=== PATIENT | male | born 1945 | race Caucasian/White ===

== ENCOUNTER → 2023-11-25 | Outpatient (REF) | payer BC, SELFPAY | LOC: DHSLP | PROVIDERS: ATTENDING PHYSICIAN Internal Medicine Critical Care Medicine; FAMILY PHYSICIAN Family Medicine | DX: G47.33 Obstructive sleep apnea (adult) (pediatric) (principal) | CPT/HCPCS: 95800 ==

== ENCOUNTER 2024-05-30 06:14 | Day surgery (SDC) | payer BC, SELFPAY ==
[2024-05-30] VITALS (14 sets, daily range): BP systolic 83–143; BP diastolic 59–99; BMI 26.5
--- NOTE | 2024-05-30 07:05 | HP.FOC2 ---
Focused History & Physical
Chief Complaint
HPI:
Chief Complaint: Umbilical hernia
HPI / Indication for Planned Procedure: Patient is a 78-year-old male recently seen in outpatient surgical evaluation confirmed the presence of a known umbilical hernia. He has been following expectantly for a few years now and it has increased a
bit in size. Occasional discomfort but it generally remains soft and reducible.
Relevant Past Medical History: Other (History of non-Hodgkin's lymphoma, hypertension, CAD with history of [place], pacemaker, CKD 3 umbilical hernia)
Relevant Social History: Negative
Relevant Family History: Negative
Relevant Past Surgical History: Positive for (Open left inguinal hernia repair, Achilles tendon repair, pacemaker, cardiac stent, lymph node biopsy)
Review of Systems
Review of Pertinent Systems: All Systems Negative
Medication
See Medication form for detailed medications: Yes
Medication List (including Herbals & OTC):
bempedoic acid 180 mg tablet (Nexletol) 180 mg PO DAILY 05/27/24
diltiazem HCl 360 mg capsule,24 hr,extended release (Tiadylt ER) 360 mg PO DAILY 05/27/24
hydrochlorothiazide 25 mg tablet 25 mg PO BID 05/27/24
losartan 50 mg tablet 50 mg PO BID 05/27/24
magnesium 250 mg tablet 250 mg PO DAILY 05/27/24
potassium citrate 99 mg capsule 99 mg PO DAILY 05/27/24
rivaroxaban 20 mg tablet (Xarelto) 20 mg PO HS 05/27/24
vitamin E (dl, acetate) 180 mg (400 unit) capsule 180 mg PO DAILY 05/27/24
Medications Reviewed: Yes
Allergies and Reactions
Patient has Allergies: No
Noted Allergies and Reactions:
Allergy/AdvReac Type Severity Reaction Status Date / Time
No Known Allergies Allergy Verified 05/27/24 09:34
Pertinent Physical Exam
All Other Systems: Negative
Head/Neck: Normal
Lungs: Normal
Heart: Normal
Abdomen: Other (Reducible umbilical hernia, 2 cm)
Extremities: Normal
Neurological: Normal
Diagnosis / Assessment
78-year-old male presenting for scheduled operative correction symptomatic umbilical hernia
Plan / Procedure
Open umbilical hernia repair with mesh
Anesthesia/Sedation to be done by Anesthesia Provider: Yes
--- NOTE | 2024-05-30 07:07 | W.SUR.PREOP ---
Pre-Operative Surgical Note
-
I have examined this patient prior to the performance of the scheduled procedure.
The patient's condition is unchanged from the time of the current History and
Physical and the patient is able to undergo the scheduled procedure.
[2024-05-30] MEDS: TYLENOL 1000 MG PO (07:20)
--- NOTE | 2024-05-30 08:35 | W.IMMPOSTOP ---
Addendum entered and electronically signed by Ferny Gomez MD 05/30/24 08:44:
#[id number]
Original Note:
Surgical Immed Post Op Note
-
Primary Surgeon: Patricia
Assisting Surgeon: Nilam Russell PA-C
Pre-op Diagnosis: Umbilical hernia
Post-op Diagnosis: Umbilical hernia, 2 cm
Procedure Performed: Open umbilical herniorrhaphy with mesh; Ventralex ST 6.4 cm round
Anesthesia Type: MAC +1% lidocaine/0.25% Marcaine
Specimen / Cultures: None
Estimated Blood Loss: 4 mL
Complications: None immediate
Operative Findings: Reducible umbilical hernia, 2 cm fascial defect. Open preperitoneal repair with Ventralex ST 6.4 cm round and closure of the overlying fascial defect.
The assistance of Nilam Russell PA-C was required due to the complexity of the procedure. During the procedure Nilam Russell PA-C assisted with retraction and closure of the wound surgical site.
--- NOTE | 2024-05-30 09:03 | SUR.PHASEI ---
patient with history of post op delirium - received propofol and precedex in OR, sedate - low BP on arrival to pacu - treated by CONDITIONING ROOM WORKER; now continues to sleep, BP stable but remains lower
--- NOTE | 2024-05-30 09:31 | SUR.PHASEI ---
awake, alert and oriented at 0915, comfortable, no c/o - happy with smooth anesthesia. ready for sds
== END 2024-05-30 10:30 | disposition home or self-care (01) ==
LOC: SDS 06:14
PROVIDERS: ATTENDING PHYSICIAN Surgery
DX: K42.9 Umbilical hernia without obstruction or gangrene (principal)
CPT/HCPCS: 49593; C1781

== ENCOUNTER → 2024-11-17 07:52 | Outpatient (REF) | payer BC, SELFPAY | LOC: HWRAD 07:52 | PROVIDERS: ATTENDING PHYSICIAN Internal Medicine Nephrology; FAMILY PHYSICIAN Family Medicine | DX: N18.32 Chronic kidney disease, stage 3b (principal) | CPT/HCPCS: 76770 ==

== ENCOUNTER → 2025-07-13 09:25 | Outpatient (REF) | payer BC, SELFPAY | LOC: RAD 09:25 | PROVIDERS: ATTENDING PHYSICIAN Family Medicine | DX: R05.3 Chronic cough (principal) | CPT/HCPCS: 71046 ==

== ENCOUNTER 2025-07-14 20:34 | Inpatient (IN) | payer BC, SELFPAY ==
[2025-07-14] VITALS (8 sets, daily range): BP systolic 130–167; BP diastolic 67–94; BMI 26.0; BMI 25.2
[2025-07-14 12:49] LABS: Hematocrit 44.1 % (39.0-52.0); Hemoglobin 15.2 g/dL (13.0-18.0); Mean Corp Hgb Conc. 34.5 g/dL (33.0-37.0); Mean Corpuscular Volume 95.5 fL (80.0-94.0); Nucleated Red Blood Cells % 0 % (-); Platelet Count 192 10^3/uL (130-400); Red Cell Dist. Width 13.9 % (11.5-14.5)
[2025-07-14 13:10] LABS: ALT (SGPT) 32 U/L (0-50); AST (SGOT) 29 U/L (17-59); Albumin 4.1 g/dl (3.5-5.0); Alkaline Phosphatase 44 U/L (38-126); Blood Urea Nitrogen 36 mg/dl (9-20); Calcium 9.2 mg/dl (8.4-10.2); Carbon Dioxide 26 mmol/L (22-30); Chloride 103 mmol/L (98-107); Glucose 86 mg/dl (70-99); Potassium 4.2 mmol/L (3.5-5.1); Sodium 136 mmol/L (135-145); Total Protein 7.1 g/dl (6.3-8.2); eGFR > 60.00
[2025-07-14 13:14] LABS: Troponin I 0.015 ng/ml
--- NOTE | 2025-07-14 14:20 | ED.GENMED ---
History of Present Illness
<Vanessa Maldonado, HORIZONTAL DRILL OPERATOR - Last Filed: 07/14/25 19:46>
General
Chief Complaint: Cough
Source: patient and spouse
Exam Limitations: none
Time Seen by Provider: 07/14/25 14:18
Nursing documentation reviewed up to this point in time: agreed with
History of Present Illness
History of Present Illness:
79-year-old male with history of sleep apnea on CPAP, A-fib, on Xarelto, HTN, HLD, pacemaker, CAD, cardiac stent 20 yrs ago, IBS presents for a three-week history of shortness of breath, productive cough with yellow mucus, wheezing, runny nose,
headache, and sore throat. Symptoms started after a severe viral upper respiratory infection around [facility]. The patient�s son had similar symptoms, and the patient was prescribed methylprednisolone and a Zpack for treatment, which initially
improved his condition. However, over the past three days, the patients cough became more productive, and he developed shortness of breath when lying down and with activity. He use home albuterol via a nebulizer, which improved oxygen saturation
from 90% to 96-97%. The patient also reports recent onset swelling in his legs and ankles, which has worsened.
He denies CP, abd pain, n/v/d/c.
Past History
<Vanessa Maldonado, HORIZONTAL DRILL OPERATOR - Last Filed: 07/14/25 19:46>
Past History
ED Past Medical History: Arrthythmia (A-fib on Xarelto), CAD, HTN and Hypercholesterolemia
ED Past Surgical History: Cardiac (Pacemaker) and Orthopedic
Review of Systems
<Vanessa Maldonado, HORIZONTAL DRILL OPERATOR - Last Filed: 07/14/25 19:46>
Review of Systems
Allergies reviewed?: Yes
All Other Systems: ROS reviewed and negative except as documented in HPI and ROS
Phy Exam
<Vanessa Maldonado, HORIZONTAL DRILL OPERATOR - Last Filed: 07/14/25 19:46>
Physical Exam
Physical Exam:
GENERAL: No acute distress. A&Ox3.
CONSTITUTIONAL: Afebrile.
EYES: clear, conjunctivae normal
ENMT: moist mucus membranes, Pharynx nl
RESPIRATORY: Regular respirations, nonlabored, frequent cough, lungs with scattered expiratory wheezes, mild rhonchi
CARDIOVASCULAR: Regular rate and rhythm, no murmurs, no rubs.
GI: Soft, nontender, normal BS
MUSCULOSKELETAL: Moves with ease. Well perfused.
SKIN: Warm, dry, pink
PSYCH: Normal mood and affect. Well kept, interactive and appropriate
NEUROLOGIC: Awake, alert and oriented. No focal neurological deficits
Course
<Vanessa Maldonado HORIZONTAL DRILL OPERATOR - Last Filed: 07/14/25 19:46>
Orders/Labs/Results
Orders:
Orders
07/14/25 12:30
Electrocardiogram (*1) Urgent
Reason for Study: Chest Pain
EKG- Treatment ONCE
07/14/25 12:40
Complete Blood Count/With Diff Urgent
Comprehensive Metabolic Panel Urgent
Pro-BNP [NT-proBNP] Urgent
Troponin I Urgent
07/14/25 15:32
Ipratropium/Albuterol Sulfate [Duoneb] 3 ml INH R NOW STA
07/14/25 15:33
Furosemide [Lasix] 40 mg IV NOW STA
07/14/25 18:13
Dexamethasone Sod Phosphate [Decadron] 6 mg IV NOW STA
07/14/25 18:31
Admit/Transfer Patient As Directed
Co-Sign Provider:
Level of Care: Inpatient admission
Assign to:: Telemetry
Physician / Group: cat
Diagnosis: chf exacerbation
Reason for Telemetry: Pulmonary Edema
Date to Stop Telemetry: 07/17/25
Time to Stop Telemetry: 11:00
Reason for Hospitalization: chf exacerbation
Expected length of stay greater than two midnights?: Yes
ELOS- Estimated Length of Stay in days: 2
I certify the patient meets the requirements for IP care: Yes
PRN Pain Medication Management As Directed
May give lesser potent ordered pain med per pt: Yes
preference::
Protocol:: Medication orders for pain may be administered in a
manner that supports deferring to patient preference
when the pt is:
- Requesting an ordered lesser potent pain medication.
Least to most potent pain medications are defined
as: acetaminophen < NSAID < tramadol < opioids
(morphine, oxycodone, hydromorphone).
- Requesting a lesser dose of the same medication IF
ORDERED.
- Requesting a less intrusive route of administration
if both routes are prescribed by the provider (PO <
IV).
07/14/25 18:32
Code Status As Directed
Resuscitation Status: Full Code
07/14/25 18:44
COVID-19 Antigen Urgent
Source: Nasal Swab
Influenza A+B Rapid Molecular Urgent
[place] Source: Nasal Swab
Specimen Description:
07/17/25 11:00
DC Protocol for Telemetry ONCE
Abnormal Lab Results
07/14/25
12:40
RBC 4.62 L 10^6/uL
(4.70-6.10)
MCV 95.5 H fL
(80.0-94.0)
MCH 32.9 H pg
(27.0-31.0)
MPV 11.1 H fL
(7.4-10.4)
Abs Immat Gran (auto) 0.2 H 10^3/uL
(0-0.05)
Absolute Neuts (auto) 7.4 H 10^3/uL
(1.4-6.5)
Absolute Monos (auto) 0.8 H 10^3/uL
(0.1-0.6)
Immature Gran % 1.8 H %
(0-0.5)
Lymphocytes % 14.2 L %
(20.5-51.1)
BUN 36 H mg/dl
(9-20)
07/14/25 12:40
07/14/25 12:40
Vital Signs
Initial and Last Documented VS:
Initial Vital Signs
Temp Pulse Resp BP Pulse Ox
97.7 F 74 18 167/94 95
07/14/25 12:27 07/14/25 12:27 07/14/25 12:27 07/14/25 12:27 07/14/25 12:27
Last Documented Vital Signs
Temp Pulse Resp BP Pulse Ox
97.7 F 70 22 130/79 96
07/14/25 12:27 07/14/25 19:00 07/14/25 19:00 07/14/25 19:00 07/14/25 18:45
Retort Setter consulted with Physician
Retort Setter consulted with physician?: Yes
Name of Physician Consulted: Raúl
<Cruzito Olsen MD - Last Filed: 07/14/25 18:08>
Orders/Labs/Results
Orders:
Orders
07/14/25 12:30
Electrocardiogram (*1) Urgent
Reason for Study: Chest Pain
EKG- Treatment ONCE
07/14/25 12:40
Complete Blood Count/With Diff Urgent
Comprehensive Metabolic Panel Urgent
Pro-BNP [NT-proBNP] Urgent
Troponin I Urgent
07/14/25 15:32
Ipratropium/Albuterol Sulfate [Duoneb] 3 ml INH R NOW STA
07/14/25 15:33
Furosemide [Lasix] 40 mg IV NOW STA
07/14/25 18:13
Dexamethasone Sod Phosphate [Decadron] 6 mg IV NOW STA
07/14/25 18:31
Admit/Transfer Patient As Directed
Co-Sign Provider:
Level of Care: Inpatient admission
Assign to:: Telemetry
Physician / Group: cat
Diagnosis: chf exacerbation
Reason for Telemetry: Pulmonary Edema
Date to Stop Telemetry: 07/17/25
Time to Stop Telemetry: 11:00
Reason for Hospitalization: chf exacerbation
Expected length of stay greater than two midnights?: Yes
ELOS- Estimated Length of Stay in days: 2
I certify the patient meets the requirements for IP care: Yes
PRN Pain Medication Management As Directed
May give lesser potent ordered pain med per pt: Yes
preference::
Protocol:: Medication orders for pain may be administered in a
manner that supports deferring to patient preference
when the pt is:
- Requesting an ordered lesser potent pain medication.
Least to most potent pain medications are defined
as: acetaminophen < NSAID < tramadol < opioids
(morphine, oxycodone, hydromorphone).
- Requesting a lesser dose of the same medication IF
ORDERED.
- Requesting a less intrusive route of administration
if both routes are prescribed by the provider (PO <
IV).
07/14/25 18:32
Code Status As Directed
Resuscitation Status: Full Code
07/14/25 18:44
COVID-19 Antigen Urgent
Source: Nasal Swab
Influenza A+B Rapid Molecular Urgent
[place] Source: Nasal Swab
Specimen Description:
07/17/25 11:00
DC Protocol for Telemetry ONCE
Abnormal Lab Results
07/14/25
12:40
RBC 4.62 L 10^6/uL
(4.70-6.10)
MCV 95.5 H fL
(80.0-94.0)
MCH 32.9 H pg
(27.0-31.0)
MPV 11.1 H fL
(7.4-10.4)
Abs Immat Gran (auto) 0.2 H 10^3/uL
(0-0.05)
Absolute Neuts (auto) 7.4 H 10^3/uL
(1.4-6.5)
Absolute Monos (auto) 0.8 H 10^3/uL
(0.1-0.6)
Immature Gran % 1.8 H %
(0-0.5)
Lymphocytes % 14.2 L %
(20.5-51.1)
BUN 36 H mg/dl
(9-20)
07/14/25 12:40
07/14/25 12:40
Vital Signs
Initial and Last Documented VS:
Initial Vital Signs
Temp Pulse Resp BP Pulse Ox
97.7 F 74 18 167/94 95
07/14/25 12:27 07/14/25 12:27 07/14/25 12:27 07/14/25 12:27 07/14/25 12:27
Last Documented Vital Signs
Temp Pulse Resp BP Pulse Ox
97.7 F 70 22 130/79 96
07/14/25 12:27 07/14/25 19:00 07/14/25 19:00 07/14/25 19:00 07/14/25 18:45
<Vanessa Maldonado HORIZONTAL DRILL OPERATOR - Last Filed: 07/14/25 19:46>
MDM/Problems Addressed
Differential Diagnosis Includes:
CHF, pneumonia, COPD, viral URI,
MDM/Problems Addressed:
79-year-old male with history of sleep apnea on CPAP, A-fib, on Xarelto, HTN, HLD, pacemaker, CAD, cardiac stent 20 yrs ago, IBS presents for a three-week history of shortness of breath, productive cough with yellow mucus, wheezing, runny nose,
headache, and sore throat. Symptoms started after a severe viral upper respiratory infection around [facility]. The patient�s son had similar symptoms, and the patient was prescribed methylprednisolone and a Zpack for treatment, which initially
improved his condition. However, over the past three days, the patients cough became more productive, and he developed shortness of breath when lying down and with activity. He use home albuterol via a nebulizer, which improved oxygen saturation
from 90% to 96-97%. The patient also reports recent onset swelling in his legs and ankles, which has worsened.
He denies CP, abd pain, n/v/d/c.
NAD, frequent cough, lungs with scattered expiratory wheezes.
EKG: Ventricular paced rhythm heart rate 71
at bedside, an Oncologist reports pt had an echocardiogram in April showing normal EF, mild aortic stenosis, mildly enlarged heart.
Reviewed out pt xray from yesterday:
IMPRESSION:
1. Mild acute interstitial and alveolar cardiogenic pulmonary edema.
2. Mild cardiomegaly.
3. Mildly decreased bilateral lung volumes.
4. Left-sided dual-chamber cardiac pacemaker in place.
CBC with no clinically significant abnormality
CMP: BUN 36 otherwise normal
Troponin 0.015
BNP 1500
Suspect a mixture of upper respiratory infection and CHF.
Discussed case with Dr. Olsen who evaluated pt Pt dipping into high 80's with conversation,. Not much improvement after Duoneb. Recommend admit.
Hospitalist notified of admission.
Covid and Flu pending
COVID and flu negative
<Vanessa Maldonado, HORIZONTAL DRILL OPERATOR - Last Filed: 07/14/25 19:46>
*Pulse Oximetry
SaO2: 95
Oxygen Mode of Delivery: Room air
Patient hypoxic: no
*EKG
EKG Intrepretation Date: 07/14/25
Interpretation: abnormal
Heart Rate: 71
Rate: normal
Rhythm: ventricular paced
[place]: normal axis
QRS Pattern: wide non-specific
Ischemia: no ischemia
*Critical Care Note
Total Time (30-74mins, 75-104mins- exclusive of procedures): Not Applicable
ED Attending Note
<Vanessa Maldonado NP - Last Filed: 07/14/25 19:46>
-
Portions of this chart may have been created with voice recognition software.� Occasional wrong word or��sound alike� substitutions may have occurred due to the inherent limitations of voice recognition software.
<Cruzito Olsen MD - Last Filed: 07/14/25 18:08>
ED Attending Note
Patient seen and examined by attending physician: Yes
I performed the substantive portion of visit, reviewed & personally made and approve the management plan that is documented in note by myself or FABIOLA.: Yes
ED Attending Note:
79-year-old male complaining of cough shortness of breath progressive over weeks. Feels he may have been exposed to multiple URIs. History of cardiac disease. Apparently EF is normal. Mild per the who is a physician. Pulse ox's were 89%
at home yesterday. Outpatient chest x-ray yesterday showed some mild pulmonary edema.
On exam patient is nontoxic at rest. He is in no respiratory distress at rest. However pulse ox's will range anywhere from 88 to 94%. He is warm and dry and perfusing well. Moderate bilateral leg edema. He has rales in the bases of his lungs
with also expiratory wheezing and rhonchi. Heart regular rate and rhythm. Pacemaker in place.
Labs and testing is stable. proBNP mildly elevated. Chest x-ray from yesterday reviewed. Given very borderline pulse ox is even at rest along with relatively terrible sounding lungs with rales wheezing and rhonchi patient warrants inpatient
management of CHF and possibly secondary viral infection.
Discharge Plan
Departure
Patient Disposition: Admit
Date of Disposition: 07/14/25
Time of Disposition: 18:13
Presentation/result/management discussed w/ accepting MD/DO: Hospitalist
Condition: Fair
Covid-19: Negative COVID-19
Discharge Problem:
CHF (congestive heart failure), Upper respiratory infection
Prescriptions:
No Action
losartan 50 mg Tablet
50 mg PO BID
vitamin E (dl, acetate) 180 mg (400 unit) Capsule
180 mg PO QPM
Nexletol 180 mg Tablet
180 mg PO DAILY
diltiazem HCl [Tiadylt ER] 360 mg Capsule,Extended Release 24 Hr
360 mg PO QPM
acetaminophen [Tylenol Extra Strength] 500 mg tablet
1,000 mg PO Q6HPRN PRN (Reason: mild pain) Qty: 1 0RF
magnesium oxide 250 mg magnesium Tablet
250 mg PO QPM
Xarelto 20 mg Tablet
20 mg PO DAILY
Airsupra 90-80 mcg/actuation Hfa Aerosol Inhaler
2 inh INHALATION R TID
Rx Instructions:
as a single dose; may repeat up to 6 doses per day (12 inhalations)
Referrals:
Nolberto Manuel MD [Family Provider, Family Practice]
Interventions
Interventions:
*Risk Screen - Suicide Last Done: 07/14/25 12:27
*General Assessment Last Done: 07/14/25 17:05
*Neglect/Abuse Screening Last Done: 07/14/25 17:05
*ED COVID-19 Vaccine History Last Done: 07/14/25 12:27
*ED Influenza Vaccine History Last Done: 07/14/25 12:27
[facility] Fall Risk Assessment Tool Last Done: 07/14/25 17:05
ED- Pulmonary Assessment Last Done: 07/14/25 17:35
Discharge Date and Time
Print Language: MOSOTHO
[2025-07-14] MEDS: LASIX 40 MG IV (17:11)
[2025-07-14] MEDS: DUONEB 3 ML INH ×2 (17:11→21:56)
--- NOTE | 2025-07-14 18:35 | HPS.HSE ---
Family Physician
-
Family Physician: Nolberto Manuel
Chief Complaint
-
cough
History of Present Illness
79-year-old male past medical history of non-Hodgkin's lymphoma, hypertension, atrial fibrillation on Xarelto with pacemaker, CAD with history of stent, CKD 3, obstructive sleep apnea, IBS presenting with 3 weeks of shortness of breath, productive
yellow cough with mucus, wheezing, runny nose and headache and sore throat. He originally had symptoms 2 weeks before Thanksgi and was treated with Augmentin and prednisone. 4 days after Thanks he developed the same symptoms again and
was treated with Z-Ernesto and prednisone with improvement but not completely.
Past 2 days cough has become more productive with shortness of breath when lying down with activity. Also with new onset swelling in his legs and ankles which is worsened. No chest pain or abdominal pain or nausea vomiting or diarrhea or chills.
Medical History
Past Medical History
Past Medical History: Reports Other (non-Hodgkin's lymphoma, hypertension, atrial fibrillation on Xarelto with pacemaker, CAD with history of stent, CKD 3, obstructive sleep apnea, IBS )
Past Surgical History: Reports None
Social History
Tobacco: Non-smoker
Alcohol: None
Drug: None
Family History
Family History: Not pertinent
Allergies / Home Medications
Allergies reflects when Allergies were last updated in [employer].
Home Medications with original date entered in [employer]
Allergy/Medication List:
Allergies
Allergy/AdvReac Type Severity Reaction Status Date / Time
No Known Allergies Allergy Verified 07/14/25 12:26
Home Medications
bempedoic acid 180 mg tablet (Nexletol) 180 mg PO DAILY 05/27/24
diltiazem HCl 360 mg capsule,24 hr,extended release (Tiadylt ER) 360 mg PO QPM 05/27/24
losartan 50 mg tablet 50 mg PO BID 05/27/24
vitamin E (dl, acetate) 180 mg (400 unit) capsule 180 mg PO QPM 05/27/24
acetaminophen 500 mg tablet (Tylenol Extra Strength) 1,000 mg (2 x 500 mg) PO Q6HPRN PRN mild pain #1 tab 05/30/24
albuterol 90 mcg-budesonide 80 mcg/actuation HFA aerosol inhaler (Airsupra) 2 inh inhalation R TID Lung/Breathing Issues 07/14/25
magnesium oxide 250 mg PO QPM 07/14/25
rivaroxaban 20 mg tablet (Xarelto) 20 mg PO DAILY 07/14/25
Review of Systems
-
History Source: Patient
A 12 point ROS was completed and negative except as noted: Yes
Constitutional: Reports No Symptoms
EENT: Reports No Symptoms
Respiratory: Reports No Symptoms
Cardiac: Reports No Symptoms
Abdomen/GI: Reports No Symptoms
: Reports No Symptoms
Musculoskeletal: Reports No Symptoms
Skin: Reports No Symptoms
Neurological: Reports No Symptoms
Endocrine: Reports No Symptoms
Hematologic/Lymphatic: Reports No Symptoms
Psych: Reports No Symptoms
Physical Exam
Vital Signs
Vital Signs
Temp Pulse Resp BP Pulse Ox
97.7 F 70 16 140/94 99
07/14/25 12:27 07/14/25 17:30 07/14/25 17:30 07/14/25 17:17 07/14/25 17:30
Physical Exam
General: Well Developed, Well Nourished and No Apparent Distress
HEENT: NormoCephalic, Moist mucous membranes and Atraumatic
Respiratory: Wheezes
Cardiac: S1/S2, Regular Rhythm and Peripheral Edema; No Murmur or Rub
GI: Soft, Non Tender, Non Distended and Normal Bowel Sounds; No Organomegaly
Rectal: Deferred by Provider
Musculoskeletal: No Clubbing, No Cyanosis and No Edema
Skin: No Rash
Neuro: Nonfocal/grossly intact
Laboratory Results
-
07/14/25 12:40
07/14/25 12:40
Laboratory Results
Total Bilirubin 1.2 mg/dl (0.2-1.3) 07/14/25 12:40
AST 29 U/L (17-59) 07/14/25 12:40
ALT 32 U/L (0-50) 07/14/25 12:40
Alkaline Phosphatase 44 U/L (38-126) 07/14/25 12:40
Troponin I 0.015 ng/ml 07/14/25 12:40
Data Reviewed
-
Lab Data: Labs Reviewed by me
Old Records: Reviewed
Impression/Plan
-
IMPRESSION:
PLAN:
# Acute CHF exacerbation
-BNP 1500
- Chest x-ray shows mild acute interstitial and alveolar cardiogenic pulm edema,
- Check I's and O's, daily weights
- 40 IV Lasix daily
- Check echo
- Cardiology consulted
# Persistent upper respiratory infection
- Check influenza and COVID
Paroxysmal atrial fibrillation with pacemaker
- Continue Xarelto
- Continue Cardizem
Non-Hodgkin's lymphoma
Essential hypertension
- Continue losartan
CAD with history of stent
- Continue Nexletol
CKD 3
- Renal function at base
Obstructive sleep apnea
IBS
Full code
DVT prophylaxis�Xarelto
Regular diet
[2025-07-14] MEDS: DECADRON 6 MG IV (18:40)
[2025-07-14 19:16] LABS: COVID-19 Antigen Negative (Negative)
--- NOTE | 2025-07-14 21:30 | PTCARENOTE ---
received pt from ED. pt ambulated from stretcher to bed. pt A&O x 3. pt offers no current complaints and appears comfortable in bed. call vick within reach. plan of care ongoing.
[2025-07-14] MEDS: COZAAR 50 MG PO (22:44)
[2025-07-14] MEDS: XARELTO 20 MG PO (23:11)
[2025-07-15 03:44] VITALS: BP 132/86
[2025-07-15] MEDS: DECADRON 4 MG IV (05:43)
[2025-07-15 06:00] VITALS: BMI 24.8
[2025-07-15 07:51] VITALS: BP 142/86
[2025-07-15] MEDS: DUONEB 3 ML INH ×2 (08:04→11:37)
[2025-07-15 08:49] LABS: Hematocrit 45.1 % (39.0-52.0); Hemoglobin 15.8 g/dL (13.0-18.0); Mean Corp Hgb Conc. 35.0 g/dL (33.0-37.0); Mean Corpuscular Volume 92.6 fL (80.0-94.0); Nucleated Red Blood Cells % 0 % (-); Platelet Count 182 10^3/uL (130-400); Red Cell Dist. Width 13.5 % (11.5-14.5)
[2025-07-15 09:23] LABS: ALT (SGPT) 33 U/L (0-50); AST (SGOT) 30 U/L (17-59); Albumin 4.1 g/dl (3.5-5.0); Alkaline Phosphatase 50 U/L (38-126); Blood Urea Nitrogen 33 mg/dl (9-20); Calcium 9.0 mg/dl (8.4-10.2); Carbon Dioxide 24 mmol/L (22-30); Chloride 101 mmol/L (98-107); Estimated Creatinine Clearance 66 ml/min; Glucose 164 mg/dl (70-99); Potassium 4.3 mmol/L (3.5-5.1); Sodium 136 mmol/L (135-145); Total Protein 6.9 g/dl (6.3-8.2); eGFR > 60.00
[2025-07-15] MEDS: COZAAR 50 MG PO (09:42)
[2025-07-15] MEDS: LASIX 40 MG IV (09:42)
--- NOTE | 2025-07-15 09:58 | CON.CAR ---
Addendum entered and electronically signed by Nile Bailey MD 07/15/25 11:30:
I saw and examined the patient.
The TACTICAL AIR DEFENSE CONTROLLER or PA's note was reviewed and I agree with the note.
Comment: General: Well developed, well nourished in NAD.
Neck: Supple, no JVD, HJR, carotids +2 B/L, no bruits bilaterally.
Heart: Non displaced PMI, RRR, no murmurs, No S3, S4, no rubs.
Lungs: Clear to auscultation bilaterally, no wheeze, rhonchi, rubs bilaterally,
normal expiratory phase.
Extremities: No clubbing, cyanosis or edema bilaterally.
Neuro: Grossly nonfocal, awake, alert and oriented x3.
Wilfred has a history of non-Hodgkin's lymphoma, hypertension, permanent atrial fibrillation on Xarelto, [employer] pacemaker, [place] 2003 status post stent, CKD 3, sleep apnea, IBS. He is followed by Dr. Mcneil in [place].
He presents with cough and shortness of breath. Cardiology consulted for CHF. He feels much better since IV Lasix. His weight is down to 203 pounds and he claims his dry weight is 201 pounds.
Discussed with primary service and patient's who is a physician. Stable cardiology status for discharge. Will change to Lasix 40 mg daily. He should follow-up with his primary stripper and opaquer apprentice.
Original Note:
Consultation
Consultation Request
Date/Time Consultation Requested: 07/15/2025,
Date/Time Consultation Performed: 07/15/2025,
Requesting Provider: Dr. Ugarte
Performing Provider: ANGELO Roche for Dr. Bailey
Reason for Consultation: Heart failure
Medical History
-
Chief Complaint: Shortness of breath, edema
History of Present Illness:
79-year-old male with past medical history non-Hodgkin's lymphoma, hypertension, hyperlipidemia, permanent atrial fibrillation on Xarelto,[employer] dual-chamber pacemaker ~2005, 2003 s/p stent, CKD 3, obstructive sleep apnea, IBS. He is
followed by Kavin Perez, stripper and opaquer apprentice in [place].
Per patient he had an echocardiogram in April 2025 and was told his numbers were good
He had been experiencing shortness of breath and productive yellow cough with wheezing last month and was treated with Augmentin and prednisone. He redeveloped symptoms and was treated with Z-Ernesto and prednisone with improvement. For the past 2
days he has had a more productive cough and developed shortness of breath with activity and lower extremity edema. He tells me he had never felt this bad in his life. He presented to the ED where evaluation showed:
proBNP 1500
chest x-ray with mild acute interstitial and alveolar cardiogenic pulmonary edema
Troponin 0.015
WBC 6.8, hemoglobin 15.8, platelets 182, BUN/creatinine 33/1.1, NA 136, K4.3
EKG: Atrial flutter with V pacing, heart rate 71 bpm
He received Lasix 40 mg IV in ED and feels much improved. His lower extremity edema has gone down significantly and he is no longer having shortness of breath.
Past medical history:
2003
Stent to ' maker' in February 2004 at [facility]
Dual-chamber permanent pacemaker, [employer], ~2005
Hypertension
Hyperlipidemia
Mild to moderate MR echo 10/2020
Permanent atrial fibrillation, on Xarelto
Non-Hodgkin's lymphoma
CKD stage III
Obstructive sleep apnea
IBS
Umbilical hernia repair 05/2024
Past Medical History
Past Medical History: Other
Past Surgical History: None and Other (Pacemaker, stent, umbilical hernia 05/2024)
Social History
Tobacco: Non-Smoker
Alcohol: None
Drug: None
Personal:
Living: With Family
Family History
Family History: Reviewed & Not Pertinent
Allergies / Home Medications
Allergy/AdvReac Type Severity Reaction Status Date / Time
No Known Allergies Allergy Verified 07/14/25 12:26
�Medication �Instructions �Recorded �Confirmed �Type
bempedoic acid 180 mg tablet 180 mg PO DAILY 05/27/24 07/14/25 History
(Nexletol)
diltiazem HCl 360 mg capsule,24 360 mg PO QPM 05/27/24 07/14/25 History
hr,extended release (Tiadylt ER)
losartan 50 mg tablet 50 mg PO BID 05/27/24 07/14/25 History
vitamin E (dl, acetate) 180 mg 180 mg PO QPM 05/27/24 07/14/25 History
(400 unit) capsule
acetaminophen 500 mg tablet 1,000 mg (2 x 500 mg) PO Q6HPRN 05/30/24 07/14/25 Rx
(Tylenol Extra Strength) PRN mild pain #1 tab
albuterol 90 mcg-budesonide 80 2 inh inhalation R TID 07/14/25 07/14/25 History
mcg/actuation HFA aerosol inhaler Lung/Breathing Issues
(Airsupra)
magnesium oxide 250 mg PO QPM 07/14/25 07/14/25 History
rivaroxaban 20 mg tablet (Xarelto) 20 mg PO DAILY 07/14/25 07/14/25 History
Review of Systems
-
History Source: Patient
Constitutional: No Symptoms
Physical Exam
Vital Signs
Temp Pulse Resp BP Pulse Ox
97.7 F 77 16 142/86 96
07/15/25 07:51 07/15/25 08:06 07/15/25 08:06 07/15/25 07:51 07/15/25 08:06
Lab Results
07/15/25 08:03
07/15/25 08:02
Troponin I 0.015 ng/ml 07/14/25 12:40
Ags-R-Fagcrzlzjzv Pept 1500 pg/ml 07/14/25 12:40
GEN: No distress, awake, Ox3
HEENT: supple, anicteric, mmm
LUNGS: CTA, no wheezes/rales
CV: Irregularly irregular S1/S2, no murmur
ABD: soft, BS+, NT/ND
EXT: Trace bilateral lower extremity edema
NEURO: Gross non-focal
SKIN: No rash
Impression / Plan
-
PCP: Nolberto Manuel
Primary stripper and opaquer apprentice: Kavin Perez
Impression:
Acute heart failure preserved EF
Permanent atrial fibrillation
Mild to moderate mitral regurgitation
Upper respiratory infection
CAD with history of stent 2003
CKD 3
Obstructive sleep apnea
Non-Hodgkin's lymphoma
Previous cardiovascular testing:
Echo 10/31/2020: Low normal LV function, mild to moderate MR, mild TR peak AV gradient 5 mmHg
Plan:
79-year-old male with CAD status post stenting in 2003, permanent atrial fibrillation, permanent pacemaker, mitral regurgitation, CKD, non-Hodgkin's lymphoma, obstructive sleep apnea, presents to [facility] with shortness of breath with exertion and lower
extremity edema in the setting of persistent upper respiratory infection. Chest x-ray with mild pulmonary edema And proBNP 1500. Acute heart failure likely exacerbated by persistent URI.
-Treated with Lasix 40 mg IV in ED with improvement in symptoms and wt down at least 3 lbs (down 10 lbs if stretcher scale wt accurate). Recent echocardiogram through outpatient stripper and opaquer apprentice stable per patient. He is not on a diuretic in
outpatient setting. Would discharge on low-dose diuretic and follow-up with primary stripper and opaquer apprentice within the next week. Check BMP 1 week s/p starting daily lasix.
- Start measuring daily weights in home setting
-Continue [id number] mg twice daily
-He has a history of permanent atrial fibrillation. He continues on Xarelto 20 mg daily for thromboembolic risk reduction.
He is rate controlled with diltiazem 360 mg daily.
-Continue pacemaker follow-up through primary stripper and opaquer apprentice
Telemetry personally reviewed: V paced with underlying A-fib, heart rates 70s
Data Reviewed
-
EKG: Tracing Personally Visualized and interpreted
Labs: Labs Reviewed by me
[2025-07-15 10:13] LABS: Hepatitis C Antibody Negative (Negative)
[2025-07-15 11:44] VITALS: BP 126/80
--- NOTE | 2025-07-15 11:54 | W.DCSUMMARY ---
Discharge Summary
Discharge Data
Date of Admission: 07/14/25
Date of Discharge: 07/15/25
Total time spent discharging patient (in min): 53
-
Pending Results: No
Hospital Course
Mr. Buckner is an 79-year-old male with a medical history of non-Hodgkin's lymphoma, permanent A-fib (on Xarelto), sick sinus syndrome (PPM), CAD (stent to LAD 2003 at [facility]), obstructive sleep apnea, hypertension, and CKD stage III who
presented with shortness of breath and wheezing. He had similar symptoms approximately 1 month prior to arrival and was treated with Augmentin and prednisone at that time. His symptoms returned and were now associated with significant lower
extremity edema and orthopnea. In the ED chest x-ray showed mild acute interstitial pulmonary edema and proBNP was elevated at 1500. He has no history of heart failure but follows with a insurance risk manager (Dr. Kavin Perez in [place], [place]), and last
known echocardiogram showed preserved ejection fraction. He was admitted for treatment of acute heart failure. His lower extremity edema, shortness of breath, and wheezing resolved with 2 doses of IV Lasix, IV steroids, and breathing treatments.
He was evaluated by cardiology who recommended transition to oral Lasix 40 mg daily and close follow-up with his primary insurance risk manager. He will be discharged to home with a prescription for oral Lasix, a tapering course of prednisone, and nebulizer
treatments to use as needed.
General: No Apparent Distress, Comfortable and Conversant
HEENT: NormoCephalic, Moist mucous membranes, Atraumatic
Respiratory: Clear and Non Labored Respirations
Cardiac: Irregular rhythm, heart rate around 80
GI: Soft, Non Tender, Non Distended and Normal Bowel Sounds
Musculoskeletal: No Edema, no deformity
: NO Albert
Neuro: Awake, Alert, Nonfocal/grossly intact
Psych: Calm and Intact Judgment/Insight
Discharge Plan
-
Patient Disposition: Home (Routine Discharge)
Discharge Diagnosis/Procedures: Acute heart failure
Activity Restrictions/Additional Instructions:
You were admitted for evaluation of volume overload which appears to be due to acute heart failure. Your symptoms dramatically improved with diuresis with IV Lasix. Your difficulty breathing was likely due to fluid collection in and around your
lungs which has resolved with diuresis. You will be started on an oral regimen of Lasix at the time of discharge and will need to follow-up closely with your primary insurance risk manager. You were also treated with steroids and breathing treatments which
helped improve your breathing. You will be sent home with a short course of tapering oral steroids and should follow-up with a gas cutting machine operator.
Referrals:
Kavin Perez MD [Non-Admitting Privileges]
Nolberto Manuel MD [Family Provider, [facility]]
Prescriptions:
New
ipratropium-albuterol 0.5 mg-3 mg(2.5 mg base)/3 mL Solution For Nebulization
3 ml inhalation R QID PRN (Reason: SOB/ Wheezing) Qty: 90 0RF
furosemide 40 mg Tablet
40 mg PO DAILY Qty: 30 0RF
prednisone 10 mg tablet
See Taper PO DIRECTED Qty: 10 0RF
Taper: Prednisone DC Starting at 40 mg daily
40 mg Daily for 1 Day and 0 Hour
30 mg Daily for 1 Day and 0 Hour
20 mg Daily for 1 Day and 0 Hour
10 mg Daily for 1 Day and 0 Hour
Continued
losartan 50 mg Tablet
50 mg PO BID
vitamin E (dl, acetate) 180 mg (400 unit) Capsule
180 mg PO QPM
Nexletol 180 mg Tablet
180 mg PO DAILY
diltiazem HCl [Tiadylt ER] 360 mg Capsule,Extended Release 24 Hr
360 mg PO QPM
acetaminophen [Tylenol Extra Strength] 500 mg tablet
1,000 mg PO Q6HPRN PRN (Reason: mild pain) Qty: 1 0RF
magnesium oxide 250 mg magnesium Tablet
250 mg PO QPM
Xarelto 20 mg Tablet
20 mg PO DAILY
Airsupra 90-80 mcg/actuation Hfa Aerosol Inhaler
2 inh INHALATION R TID
Rx Instructions:
as a single dose; may repeat up to 6 doses per day (12 inhalations)
Discharge Orders:
Discharge Patient (As Directed); Ordered 07/15/25
Ordered By: Kishan Ugarte
Discharge Date and Time
Print Language: CHINESE
--- NOTE | 2025-07-15 13:09 | CM ---
CM met with pt and spouse bedside
They reside in a 2[address] with 2STE, full flight to 2nd floor
Pt is is independent at baseline
PCP- Nolberto Manuel
Rx- [facility] [address]
Pt reviewed pt with attending and ready for dc
Pt declined VN for CHF/daily weights
Spouse is a physician and can help manage at home- confirmed they have scale
IMM verbally reviewed- copy provided
Discharge Disposition-home no needs, spouse transport
== END 2025-07-15 13:28 | disposition home or self-care (01) | DRG 291 ==
LOC: 4 EAST ACU 20:34
PROVIDERS: Emergency Medicine; Registered Nurse; ADMITTING PHYSICIAN Hospitalist; ATTENDING PHYSICIAN Internal Medicine; CONSULT PHYSICIAN Internal Medicine Cardiovascular Disease; EMERGENCY PHYSICIAN Emergency Medicine; FAMILY PHYSICIAN Family Medicine
DX: I13.0 Hypertensive heart and chronic kidney disease with heart failure and stage 1 through stage 4 chronic kidney disease, or unspecified chronic kidney disease (principal); I50.31 Acute diastolic (congestive) heart failure; I48.21 Permanent atrial fibrillation; C85.90 Non-Hodgkin lymphoma, unspecified, unspecified site; E78.00 Pure hypercholesterolemia, unspecified; K58.9 Irritable bowel syndrome, unspecified; I34.0 Nonrheumatic mitral (valve) insufficiency; N18.30 Chronic kidney disease, stage 3 unspecified; I25.10 Atherosclerotic heart disease of native coronary artery without angina pectoris; J06.9 Acute upper respiratory infection, unspecified; G47.33 Obstructive sleep apnea (adult) (pediatric); Z95.0 Presence of cardiac pacemaker; Z79.01 Long term (current) use of anticoagulants; Z95.5 Presence of coronary angioplasty implant and graft; I25.2 Old myocardial infarction; Z79.899 Other long term (current) drug therapy; Z11.52 Encounter for screening for COVID-19
CPT/HCPCS: 80053; 83880; 84484; 85025; 86803; 87502; 87811; 93005; 94640; 96374; 96375; 99285